=== PATIENT | female | born 1995 | race Caucasian/White ===

== ENCOUNTER 2023-05-18 12:01 | Day surgery (SDC) | payer OTHER ==
[2023-05-18 13:22] LABS: Fetal Membranes Rupture No Membranes Rupture (No Rupture)
== END 2023-05-18 15:30 | disposition home or self-care (01) ==
LOC: CSHLD/OP 12:01
PROVIDERS: ATTEND Advanced Practice Midwife
DX: O99.891 Other specified diseases and conditions complicating pregnancy (principal); N89.9 Noninflammatory disorder of vagina, unspecified; Z98.890 Other specified postprocedural states; Z79.899 Other long term (current) drug therapy; Z3A.32 32 weeks gestation of pregnancy
CPT/HCPCS: 84112; 87480; 87510; 87660

== ENCOUNTER 2024-12-06 04:42 | Inpatient (IN) | payer OTHER ==
[2024-12-06] MEDS ORDERED: hydrALAZINE 20 MG/ML VIAL SLOW IVP PRN ×3 (04:52→15:10)
[2024-12-06 05:19] VITALS: BMI 27.1
[2024-12-06] MEDS ORDERED: Carboprost 250 MCG/ML AMP IM PRN (05:22)
[2024-12-06] MEDS ORDERED: Diphenoxylate HCl/Atropine Tablet PO PRN ×2 (05:22)
[2024-12-06] MEDS ORDERED: Ondansetron PF 4 MG/2 ML Vial IVP PRN ×2 (05:22→15:10)
[2024-12-06] MEDS ORDERED: Methylergonovine 0.2 MG/ML VIAL IM PRN (05:22)
[2024-12-06] MEDS ORDERED: Tranexamic Acid 1,000 MG/10 ML VIAL IVP PRN (05:22)
[2024-12-06] MEDS ORDERED: Oxytocin 30 units/NS 500 ML 500 ML IV SCH ×3 (05:30→15:10)
[2024-12-06 05:43] LABS: Fetal Membranes Rupture RUPTURE DETECTED (No Rupture)
[2024-12-06 05:54] LABS: Hematocrit 38.8 % (34.9-44.5); Hemoglobin 13.2 g/dL (12.0-15.5); Mean Corpuscular Hemoglobin 28.8 pg (27.0-33.0); Mean Corpuscular Volume 84.7 fL (81.6-98.3); Platelet Count 178 10x3/uL (150-450); Red Blood Cell (RBC) Count 4.58 10x6/uL (3.90-5.03); White Blood Cell (WBC) Count 15.12 10x3/uL (3.5-10.5)
[2024-12-06 06:20] LABS: Hep B Surf Ag - L&D Non-Reactive S/CO (NonReactive)
[2024-12-06 06:21] LABS: Syphilis Antibody Index 0.07 S/CO (<1.00 Non-Reactive)
[2024-12-06] MEDS: Lidocaine 1% (PF) 30 ML VIAL SC PRN (10:38)
[2024-12-06] MEDS: Ibuprofen 800 MG TAB PO PRN (13:20)
[2024-12-06] MEDS ORDERED: Milk Of Magnesia 30 ML UDCUP PO PRN (15:10)
[2024-12-06] MEDS ORDERED: Bisacodyl 10 MG SUPP PR PRN (15:10)
[2024-12-06] MEDS ORDERED: Lanolin Ointment 7 GM TUBE TOP PRN (15:10)
[2024-12-06] MEDS ORDERED: HYDROcodone/Acetaminophen 5/325 mg Tablet PO PRN (15:10)
[2024-12-06] MEDS ORDERED: HYDROcodone/Acetaminophen 10/325 mg Tablet PO PRN (15:20)
[2024-12-06] MEDS ORDERED: Acetaminophen 325 MG TAB PO PRN (15:21)
[2024-12-06] MEDS: Boostrix 0.5 ML (Tdap) VIAL (>/=7 yrs of age) IM ONE (15:29)
[2024-12-06] MEDS: Ferrous Sulfate 325 MG TAB PO SCH (15:29)
[2024-12-06] MEDS: Benzocaine-Menthol 82.5 ML CAN TOP PRN (16:31)
[2024-12-06] MEDS: Ibuprofen 800 MG TAB PO SCH (22:10)
[2024-12-07 04:07] VITALS: TEMP 97.9
[2024-12-07 08:50] VITALS: BP 109/59
== END 2024-12-07 11:15 | disposition home or self-care (01) | DRG 807 ==
LOC: CSHLD/OP 04:42 → CSHLD 05:18 → CSHPED 15:11
PROVIDERS: ADMIT Obstetrics & Gynecology; ATTEND Obstetrics & Gynecology
PROC: 10E0XZZ Delivery of Products of Conception, External Approach (ICD-10-PCS; principal; 2024-12-06)
PROC: 0KQM0ZZ Repair Perineum Muscle, Open Approach (ICD-10-PCS; 2024-12-06)
DX: O48.0 Post-term pregnancy (principal); Z37.0 Single live birth; O70.1 Second degree perineal laceration during delivery; Z3A.40 40 weeks gestation of pregnancy; Z79.899 Other long term (current) drug therapy
CPT/HCPCS: 84112; 85027; 86780; 86850; 86900; 86901; 87340; 99285